=== PATIENT | male | born 1985 | race Caucasian/White ===

== ENCOUNTER 2016-11-02 13:05 | Emergency (ER) | payer OTHER ==
[2016-11-02 13:17] VITALS: BP 126/82; PULSE 78; RESP 18; TEMP 98; O2SAT 97
[2016-11-02] MEDS ORDERED: TDAP ADULT 0.5 ML VIAL (BOOSTRIX) IM ONE (13:17)
--- NOTE | 2016-11-02 13:44 | UCPHY ---
H & P Patient Type: New Smoking Status: Never smoked Time Seen by Provider: 11/02/16 13:26 HPI/ROS: CHIEF COMPLAINT: left great toe laceration HISTORY OF PRESENT ILLNESS: 31-year-old male presents with a laceration to the pad of his left great toe. Patient was wearing flip-flops this morning when he stubbed his foot on a metal siding. Tetanus is not up-to-date, he denies numbness or tingling to this toe, he denies other injuries. (Altagracia Eden) Physical Exam: GEN: Awake, alert, oriented, no acute distress RESP: nl resp effort MSK: Range of motion of left great toe at MTP joint and IP joint, 2 point discrimination intact, cap refill less than 2 seconds SKIN: 2 cm horizontal laceration to plantar aspect of left great toe pad (Altagracia Eden) Constitutional: Initial Vital Signs Temperature (C) 36.6 C 11/02/16 13:15 Heart Rate 78 11/02/16 13:15 Respiratory Rate 18 11/02/16 13:15 Blood Pressure 126/82 H 11/02/16 13:15 O2 Sat (%) 97 11/02/16 13:15 O2 Delivery Mode Room Air Allergies/Adverse Reactions: No Known Allergies Allergy (Unverified 11/02/16 13:15) Home Medications: Medication Instructions Recorded NK [No Known Home Meds] 11/02/16 MDM/Departure - MDM Procedures: Left great toe anesthetized with 1% lidocaine without epinephrine with digital block, cleaned well by the fire alarm technician, Steri-Strips were placed and dressing was placed. (Altagracia Eden) Medications Given: Discontinued Medications Diphtheria/Tetanus/Acell Pertussis (Boostrix) 0.5 ml IM .ONCE ONE Stop: 11/02/16 13:18 Last Admin: 11/02/16 13:38 Dose: 0.5 ml ED Course/Re-evaluation: The patient was evaluated and managed by the nurse practitioner, Altagracia Eden. My co-signature indicates that I have reviewed this chart and I agree with the findings and plan of care as documented. I am the secondary supervising physician. (Luanne Sauceda) - Depart Disposition: Home, Routine, Self-Care Clinical Impression: Laceration of left great toe Qualifiers: Encounter type: initial encounter Qualifier Code: (S91.112A) Laceration without foreign body of left great toe without damage to nail, initial encounter Condition: Good Instructions: Skin Avulsion (ED) Additional Instructions: Keep clean and dry for 48 hours, then you may shower. Let the Steri-Strips fall off by themselves. Placed Band-Aid. Do not soak until healed. Return for any signs of infection. Referrals: NONE *PRIMARY CARE P,. [Primary Care Provider] - As per Instructions - PQRS PQRS Measurement: na (Altagracia Eden)
== END 2016-11-02 14:24 | disposition home or self-care (01) ==
LOC: CED 13:05
DX: S91.112A Laceration without foreign body of left great toe without damage to nail, initial encounter (principal); W26.9XXA Contact with unspecified sharp object(s), initial encounter; Z23 Encounter for immunization
CPT/HCPCS: 99202-PO; G0463-PO